=== PATIENT | male | born 2000 | race Caucasian/White ===

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

== ENCOUNTER 2021-03-08 11:17 | Emergency (ER) | payer OTHER ==
[~2021-03-08] VITALS: Ht 182.9 cm; Wt 130.0 kg
[~2021-03-08 11:17] MED LIST changes: +CORTISPORIN OTI10 M2 AD; +SERTRALINE50 MG PO; +TOPAMAX100 MG PO; +VYVANSE60 MG PO
[2021-03-08 11:46] VITALS: BP 133/82
== END 2021-03-08 11:49 | disposition home or self-care (01) ==
LOC: ED 11:17
DX: T16.1XXA Foreign body in right ear, initial encounter (principal); X58.XXXA Exposure to other specified factors, initial encounter

== ENCOUNTER 2024-03-29 12:07 | Emergency (ER) | payer OTHER ==
[~2024-03-29] VITALS: Ht 182.9 cm; Wt 154.0 kg
[2024-03-29 12:12] VITALS: BP 148/103
[2024-03-29 12:15] VITALS: BP 149/98
[2024-03-29 12:31] VITALS: BP 147/102
[2024-03-29] MEDS ORDERED: PROAIR RES108 MCG/AC IN (12:41)
[2024-03-29] MEDS ORDERED: PROMETHAZINE DM1 SOL PO (12:41)
[2024-03-29] MEDS ORDERED: ZOFRAN4 MG/TAB PO (12:41)
[2024-03-29 12:46] VITALS: BP 147/98
== END 2024-03-29 12:57 | disposition home or self-care (01) ==
LOC: ED 12:07
DX: J10.1 Influenza due to other identified influenza virus with other respiratory manifestations (principal); Z20.822 Contact with and (suspected) exposure to COVID-19

== ENCOUNTER 2024-06-30 20:41 | Emergency (ER) | payer OTHER ==
[~2024-06-30] VITALS: Ht 182.9 cm; Wt 147.0 kg
[~2024-06-30 20:41] MED LIST changes: +PROAIR RES108 MCG/AC IN; +PROMETHAZINE DM1 SOL PO; +ZOFRAN4 MG/TAB PO
[2024-06-30] MEDS ORDERED: CORTISPORIN OTI10 ML AD (22:04)
== END 2024-06-30 22:20 | disposition home or self-care (01) ==
LOC: ED 20:41
DX: H60.91 Unspecified otitis externa, right ear (principal)